=== PATIENT | male | born 1950 | race Caucasian/White ===

== ENCOUNTER 2018-12-13 21:38 | Emergency (ER) | payer MEDICARE, OTHER ==
[~2018-12-13] VITALS: Ht 188 cm; Wt 98.4 kg
[~2018-12-13 21:38] MED LIST: ASPIRIN325 PO; CRESTOR20 MG PO; DESYREL PO; FLEXERIL PO; LANTUS; LISINOPRIL20 MG PO; NEURONTIN 300300 M1 PO; NORCO 5-325 TA1 EACH PO; NOVOLOG100 UNIT/1 SQ; PERCOCET 10-321 EACH PO; PLAVIX 75 MG TA75 M1; SIMVASTATIN20 MG PO
[2018-12-13] MEDS ORDERED: DURAGESIC1 EAC3 TRANSDERM (21:58)
[2018-12-13 22:49] LABS: ABSOLUTE BASOPHILS 0.1 thou/uL (0.0-0.2); ABSOLUTE LYMPHOCYTES 1.1 thou/uL (0.8-5.3); ABSOLUTE MONOCYTES 0.8 thou/uL (0.0-1.2); ABSOLUTE NEUTROPHILS 9.9 thou/uL (1.6-8.1); BASOPHILS 0.9 %; EOSINOPHILS 0.2 %; HEMATOCRIT 40.4 % (42.0-52.0); HEMOGLOBIN 13.5 gm/dL (14.0-18.0); LYMPHOCYTES 9.5 %; MCH 27.6 pg (26.0-34.0); MCHC 33.4 g/dL (28.0-37.0); MCV 82.6 fL (80.0-100.0); MONOCYTES 6.9 %; NUCLEATED RBCS 0 /100WBC; PLATELET COUNT* 277 thou/uL (150-400); POLYS 82.5 %; RBC 4.89 mil/uL (4.50-6.00); RDW-CV 12.8 % (10.5-14.5)
[2018-12-13 23:03] LABS: CALCIUM 9.3 mg/dL (8.5-10.1); CREATININE 1.3 mg/dL (0.6-1.3); POTASSIUM 4.7 mmol/L (3.5-5.1)
[2018-12-13 23:08] LABS: ALBUMIN 3.1 g/dL (3.4-5.0); TOTAL BILIRUBIN 0.6 mg/dL (<0.1-1.0); TOTAL PROTEIN 8.4 g/dL (6.4-8.2); URIC ACID* 6.5 mg/dL (2.6-7.2)
[2018-12-13] MEDS ORDERED: PREDNISONE50 MG PO (23:41)
[2018-12-14 00:30] VITALS: BP 170/64
== END 2018-12-14 00:32 | disposition home or self-care (01) ==
LOC: M.ERS 21:38
PROVIDERS: Personal Emergency Response Attendant
DX: M10.071 Idiopathic gout, right ankle and foot (principal); M10.061 Idiopathic gout, right knee; I25.10 Atherosclerotic heart disease of native coronary artery without angina pectoris; E11.9 Type 2 diabetes mellitus without complications; E78.5 Hyperlipidemia, unspecified; Z79.4 Long term (current) use of insulin

== ENCOUNTER 2021-01-21 15:23 | Emergency (ER) | payer MEDICARE ==
[~2021-01-21] VITALS: Ht 182.9 cm; Wt 95.9 kg
[~2021-01-21 15:23] MED LIST changes: +DURAGESIC1 EAC3 TRANSDERM; +PREDNISONE50 MG PO
[2021-01-21 15:56] LABS: ABSOLUTE BASOPHILS 0.1 thou/uL (0.0-0.2); ABSOLUTE EOSINOPHILS 0.2 thou/uL (0.0-0.7); ABSOLUTE LYMPHOCYTES 2.7 thou/uL (0.8-5.3); ABSOLUTE MONOCYTES 0.6 thou/uL (0.0-1.2); ABSOLUTE NEUTROPHILS 3.3 thou/uL (1.6-8.1); BASOPHILS 0.9 %; EOSINOPHILS 2.5 %; HEMATOCRIT 37.6 % (42.0-52.0); HEMOGLOBIN 12.9 gm/dL (14.0-18.0); LYMPHOCYTES 39.8 %; MCH 28.7 pg (26.0-34.0); MCHC 34.2 g/dL (28.0-37.0); MONOCYTES 8.3 %; MPV 7.5 fl. (7.2-11.1); NUCLEATED RBCS 0 /100WBC; PLATELET COUNT* 259 thou/uL (150-400); POLYS 48.5 %; RBC 4.48 mil/uL (4.50-6.00); RDW-CV 14.5 % (10.5-14.5); WBC 6.9 thou/uL (4.0-11.0)
[2021-01-21] MEDS ORDERED: MORPHINE SULFAT15 M3 PO (15:59)
[2021-01-21 16:05] LABS: CALCIUM 8.3 mg/dL (8.5-10.1); CREATININE 1.8 mg/dL (0.6-1.3)
[2021-01-21 16:22] LABS: ALBUMIN 3.4 g/dL (3.4-5.0); TOTAL BILIRUBIN 0.2 mg/dL (<0.1-1.0); TOTAL PROTEIN 7.6 g/dL (6.4-8.2)
[2021-01-21 16:47] VITALS: BP 125/70
[2021-01-21] MEDS ORDERED: NORVASC5 M1 PO (17:09)
[2021-01-21] MEDS ORDERED: PLAVIX 75 MG TA75 MG PO (17:09)
[2021-01-21] MEDS ORDERED: ROPINIROLE HCL2 MG PO (17:10)
[2021-01-21] MEDS ORDERED: TIZANIDINE HCL2 M1 PO (17:10)
[2021-01-21] MEDS ORDERED: AMBIEN 5 MG TABL5 MG PO (17:10)
[2021-01-21] MEDS ORDERED: CELEXA40 MG PO (17:11)
[2021-01-21] MEDS ORDERED: NOVOLOG FL100 UNIT/M SUBQ (17:11)
[2021-01-21] MEDS ORDERED: ADULT ASPIRIN R81 MG PO (17:12)
[2021-01-21] MEDS ORDERED: JARDIANCE10 MG PO (17:12)
[2021-01-21] MEDS ORDERED: ZYRTEC10 M5 PO (17:12)
[2021-01-21] MEDS ORDERED: OMEPRAZOLE 20 M20 M1 PO (17:38)
--- NOTE | 2021-01-22 14:39 | EKG ---
[place] [address] ELECTROCARDIOGRAM REPORT Name: USHA LONGO Room: [facility]#: [id number] Admission: 01/21/21 Attend Phys: Discharge: 01/21/21 Date of : 50 Date of Service: 01/21/21 1543 Report #: [id number] THIS REPORT FOR: //name// [facility] ED Test Date: 2021-01-21 Test Time: 15:43:19 Pat Name: USHA LONGO Department: Room: Gender: M Expanded Function Dental Assistant: YANIRA : 1950 Requested By: Chano Carey Order Number: [id number] MD: Earle Adams Measurements Intervals [place] Rate: 71 P: 32 MD: 146 QRS: 21 QRSD: 92 T: 63 QT: 401 QTc: 436 Interpretive Statements Sinus rhythm RSR' in V1 or V2, probably normal variant Compared to ECG 02/22/2013 13:42:11 No significant interval change Electronically Signed On 01-22-2021 14:38:58 CDT by Earle Adams [email or web address] <ELECTRONICALLY SIGNED> By: Earle Adams MD, [facility] 01/22/21 1438 1543 1543 Earle Adams MD, [facility] /EPI
== END 2021-01-21 16:54 | disposition home or self-care (01) ==
LOC: M.ERS 15:23
PROVIDERS: Family Medicine
DX: R53.1 Weakness (principal); Z79.899 Other long term (current) drug therapy; I10 Essential (primary) hypertension; E11.9 Type 2 diabetes mellitus without complications

== ENCOUNTER 2021-01-21 16:56 | Emergency (ER) | payer MEDICARE ==
[~2021-01-21] VITALS: Ht 182.9 cm; Wt 96.6 kg
[~2021-01-21 16:56] MED LIST changes: +MORPHINE SULFAT15 M3 PO
[2021-01-21] MEDS ORDERED: NORVASC5 M1 PO (17:09)
[2021-01-21] MEDS ORDERED: PLAVIX 75 MG TA75 MG PO (17:09)
[2021-01-21] MEDS ORDERED: AMBIEN 5 MG TABL5 MG PO (17:10)
[2021-01-21] MEDS ORDERED: TIZANIDINE HCL2 M1 PO (17:10)
[2021-01-21] MEDS ORDERED: ROPINIROLE HCL2 MG PO (17:10)
[2021-01-21] MEDS ORDERED: NOVOLOG FL100 UNIT/M SUBQ (17:11)
[2021-01-21] MEDS ORDERED: CELEXA40 MG PO (17:11)
[2021-01-21] MEDS ORDERED: JARDIANCE10 MG PO (17:12)
[2021-01-21] MEDS ORDERED: ADULT ASPIRIN R81 MG PO (17:12)
[2021-01-21] MEDS ORDERED: ZYRTEC10 M5 PO (17:12)
[2021-01-21] MEDS ORDERED: OMEPRAZOLE 20 M20 M1 PO (17:38)
[2021-01-21 20:44] VITALS: BP 134/59
== END 2021-01-21 20:40 | disposition short-term general hospital (02) ==
LOC: M.ERS 16:56
DX: G45.9 Transient cerebral ischemic attack, unspecified (principal); Z20.822 Contact with and (suspected) exposure to COVID-19; Z79.82 Long term (current) use of aspirin; Z79.2 Long term (current) use of antibiotics; Z79.899 Other long term (current) drug therapy; E11.9 Type 2 diabetes mellitus without complications; I10 Essential (primary) hypertension